=== PATIENT | female | born 1935 | race Caucasian/White ===

== ENCOUNTER 2017-05-10 10:25 | Day surgery (SDC) | payer MEDICARE ==
[2017-05-10] VITALS (9 sets, daily range): BP systolic 110–156; BP diastolic 61–72; PULSE 70–88; RESP 14–19; TEMP 97.7–98.7; O2SAT 96–100
[~2017-05-10] VITALS: Ht 162.6 cm; Wt 70.0 kg
[~2017-05-10 10:25] MED LIST: ADVI200C5 PO; ASPI1TAB69 PO; BIOT1SUB SL; CENTTAB PO; GABA100C4 PO; LACTCAP8 PO; LEVO88TA2 PO; NORC5TAB PO; OCUVTAB4 PO; OMEP40CA2 PO; UMEC1INH INH; VITA10002 SL; VITA100064 PO
[2017-05-10] MEDS ORDERED: IOHEXOL 350 MG/ML 100 ML BTL (for Cath Lab) OTHER ONE ×2 (10:26)
[2017-05-10] MEDS ORDERED: ASPIRIN 81 MG CHEW TAB PO SCH (11:30)
[2017-05-10 11:37] LABS: AUTOMATED NEUTROPHIL # 3.4 TH/MM3 (1.8-7.7); BASOPHIL % 0.5 % (0.0-2.0); EOSINOPHIL # 0.1 TH/MM3 (0-0.4); EOSINOPHIL % 1.2 % (0.0-4.0); HEMATOCRIT 39.3 % (35.0-46.0); HEMO FLAGS DIFF FINAL; LYMPH % 32.6 % (9.0-44.0); LYMPHOCYTE # 1.9 TH/MM3 (1.0-4.8); MEAN CELL VOLUME 88.1 FL (80.0-100.0); MEAN CORPUSCULAR HEMOGLOBIN 28.7 PG (27.0-34.0); MEAN CORPUSCULAR HGB CONC 32.5 % (32.0-36.0); MONO % 7.5 % (0.0-8.0); NEUT % 58.2 % (16.0-70.0); PLATELET COUNT 217 TH/MM3 (150-450); RED BLOOD COUNT 4.46 MIL/MM3 (4.00-5.30); RED CELL DISTRIBUTION WIDTH 13.7 % (11.6-17.2); WHITE BLOOD COUNT 5.8 TH/MM3 (4.0-11.0)
[2017-05-10 11:45] LABS: INTERNATIONAL NORMALIZED RATIO 0.9 RATIO; PROTHROMBIN TIME - PATIENT 10.3 SEC (9.8-11.6)
[2017-05-10 11:54] LABS: BICARBONATE 22.4 MEQ/L (21.0-32.0); POTASSIUM 4.1 MEQ/L (3.5-5.1)
[2017-05-10] MEDS ORDERED: FAMO1TAB37 PO (12:03)
[2017-05-10] MEDS ORDERED: ASPI81TA11 PO (12:03)
[2017-05-10] MEDS ORDERED: ISOS10TA PO (12:03)
[2017-05-10] MEDS ORDERED: HEPARIN-NS/PF INJ 500 ML ONE (12:16)
[2017-05-10] MEDS ORDERED: MIDAZOLAM HCL 2 MG/2 ML VIAL ONE (12:50)
[2017-05-10] MEDS ORDERED: NITROGLYCERIN 2% OINT 1 GM PACKET ONE ×2 (13:10→13:11)
[2017-05-10] MEDS ORDERED: ADENOSINE STRESS TEST INJ 90 MG/30 ML VIAL ONE (13:13)
[2017-05-10] MEDS ORDERED: TIROFIBAN INFUSION INJ 250 ML IV ONE (13:29)
[2017-05-10] MEDS ORDERED: CLOPIDOGREL 300 MG TAB ONE (13:30)
[2017-05-10] MEDS: TIROFIBAN INFUSION INJ 250 ML IV SCH (13:41)
[2017-05-10] MEDS ORDERED: SODIUM CHLORIDE 0.9% FLUSH 10 ML FLUSH IV FLUSH PRN (13:45)
[2017-05-10] MEDS ORDERED: MISC INFORMATION XX ONE (13:45)
[2017-05-10] MEDS ORDERED: CLOPIDOGREL 300 MG TAB PO ONE (13:45)
--- NOTE | 2017-05-10 13:47 | CATHPROC ---
[employer] HIS Report Study Information Study Number Admission Scheduled Start Study Start [id number] May 10 2017 10:25AM 05/10/2017 May 10 2017 11:57AM [facility] Cardiac Catheterization Admit Source Facility Department Transfer in from another acute care facility [facility] - [facility] Physician and Clinical Staff Initial Sebastian Webster Cattle Shipper Marj Pollock,CARLOTA Recorder Heike Lund,RT(R) Scrub Caren Lopez,RT(R) Procedures Performed Procedure Location (Site) Vessel Name Coronary Angiograms LCA Left Coronary Coronary Angiograms RCA Right Coronary L Heart Cath LV Gram-hand inj. LV LV Ventricle Stent LAD Mid Left Coronary Equipment Time Back Up Scan Coordinator Description Size Mfg Part Number Used/Scraped TRANSDUCER, TRUWAVE [id number] 12:07 BRUSH MCGEE * Used W/STOCKCOCK *[id number] [id number] *[id number] [id number] *[id number] *[id number] 12:07 [employer] PACK, CCL CUSTOM * Used *[id number] 12:07 [employer] PACER PEN, SKIN DUAL W/ RULER * Used *[id number] 13:25 [employer] STENT, 2.5 8 INTEGRITY 2.5 8 Used *[id number] 13:26 [employer] MEDICAL 30 CAROL INDEFLATOR Used *[id number] 13:09 [employer] MEDICAL SHEATH, FR6.5 PRELUDE 11CM FR 6.5 038ACT Used *[id number] 12:07 [employer] MEDICAL WIRE, 3MMJ .035 180CM 180CM Used *[id number] 12:07 NAMIC MANIFOLD, 4 PORT * Used *[id number] 12:07 [employer] OMNIPAQUE, 350 MG, 150ML 150ML [id number] Used [id number] 12:07 [employer] MEDICAL BLANKET,WARM AIR CCL * Used *[id number] 12:07 TERUMO MEDICAL SHEATH, FR4 TERUMO (10CM) FR 4 Used *[id number] 13:15 [employer] PRIME WIRE, VERRATA 185CM 185CM [id number] *[id number] Used STENT, 2.5 8 RESOLUTE [id number] Scrap: Staff 13:30 MEDTRONIC 2.5 8 INTEGRITY RX *[id number] Error Equipment Model, Serial, Lot Number and Expiration Data Description Model Number Serial Number Lot Number Expiration Date STENT, 2.5 8 INTEGRITY [id number] 09-16-2018 STENT, 2.5 8 RESOLUTE [id number] 11-21-2018 INTEGRITY RX History: Allergies Allergy Reaction Sulfa (Sulfonamide Antibiotics) NAUSEA morphine NAUSEA penicillin G Hives History: Risk Factors Family History of Hypertension Dyslipidemia Previous OR Previous Heart Failure Premature CAD No Yes Yes No No Prior Valve Prior PCI Prior PCIDate Prior CABG Surgery No Yes 07/31/2011 No Cerebrovascular Peripheral Artery Chronic Lung On Dialysis Diabetes Disease Disease Disease No No No Yes No History: Stress Tests Stress or Imaging Studies Performed No History: Other Current Smoker Method Quit Packs a Day Years Used Pack Years No Cigarettes 30 Years Ago 1 40 40 Labs Hgb (g/dl) Hct (%) WBC (l/cumm) Platelets (thousands) 11.60-17.00 35.00-51.00 4.00-11.00 150.00-450.00 12.8 39.3 5.8 217 Glucose (mg/dl) BUN (mg/dl) Creatinine (mg/dl) BUN:Creatinine (1:x) 74.00-106.00 7.00-18.00 0.50-1.30 10.00-20.00 90 24 0.7 34.3 Na (meq/l) K (meq/l) 136.00-145.00 3.50-5.10 141 4.1 INR (PTT:PT) 0.90-1.10 0.9 CPK-MB (ng/ML) 0.50-3.60 Not Drawn Medication Medication Total Dose (Bolus/Oral) Medication Total Dosage/Unit 1% XYLOCAINE 20 mL AGGRASTAT BOLUS 34.6 mL FENTANYL 12.5 mcg HEPARIN 4000 units NITRO OINTMENT 2 inches PLAVIX 600 mg VERSED 2 mg Medications (Bolus/Oral) Medication Time Given Dosage/Unit Administered By Reason 05/10/2017 12:55:32 1% XYLOCAINE 20 mL Sebastian Dyson PM 20 mL 1% XYLOCAINE given in lab by Sebastian Dyson in Right Groin via Subcutaneous. VERSED 05/10/2017 1:06:00 PM 1 mg Marj Pollock 1 mg VERSED given in lab by Marj Pollock, RN in Left Antecubital via Peripheral IV. Ordered by Sebastian Pina. FENTANYL 05/10/2017 1:08:00 PM 12.5 mcg Marj Pollock 12.5 mcg FENTANYL given in lab by Marj Pollock RN in Left Antecubital via Peripheral IV. Ordered by Sebastian Dyson. HEPARIN 05/10/2017 1:09:33 PM 4000 units Marj Pollock 4000 units HEPARIN given in lab by Marj Pollock RN in Right Groin via Peripheral IV. Ordered by Sebastian Cat. NITRO OINTMENT 05/10/2017 1:12:00 PM 2 inches Marj Pollock 2 inches NITRO OINTMENT given in lab by Marj Pollock RN. Ordered by Sebastian Dyson. VERSED 05/10/2017 1:14:00 PM 1 mg Marj Pollock 1 mg VERSED given in lab by Marj Pollock RN in Left Antecubital via Peripheral IV. Ordered by Sebastian Pina. AGGRASTAT BOLUS 05/10/2017 1:32:00 PM 34.6 mL Marj Pollock 34.6 mL AGGRASTAT BOLUS given in lab by Marj Pollock RN in Left Antecubital via Peripheral IV. Or dered by Sebastian Dyson. PLAVIX 05/10/2017 1:35:00 PM 600 mg Marj Pollock 600 mg PLAVIX given in lab by Marj Pollock RN via Oral. Ordered by Sebastian Dyson. Medication (Drip) Medication Time Given Dosage/Unit Concentration/Unit Diluent (ml) Solution AGGRASTAT DRIP 05/10/2017 1:33:00 PM 0.15 mcg/kg/min 12.5 mg 250 NaCl .9 0.15 mcg/kg/min AGGRASTAT DRIP given in lab by Marj Pollock RN in Left Antecubital via Peripheral IV. Pump/Drip Flow = 12.4 ml/hr using NaCl .9 with a concentration of 12.5 mg in 250 ml. Ordered by Sebastian Dyson. Initial Case Assessment Cardiovascular HR Rhythm NIBP Chest Pain 84 sr 168/100 0 Edema Present Skin color Skin None Normal Warm Dry Circulatory - Right Pulses Dorsalis Pedis Femoral 1 2 Scale (0,1,2,3,4,d) Circulatory - Left Pulses Dorsalis Pedis Femoral 2 2 Scale (0,1,2,3,4,d) Neurological State Oriented to time-place- Alert Moves all extremities person Respiration - General Respiration Rate SpO2 (%) (B/min) 15 100 Chronological Log Time Study Chronological Log 12:07:12 Patient arrived via Bed. 12:07:13 Patient Name, D.O.B, / Armband Verified By R.N. 12:07:13 Consent signed by the physician and the patient and verified by the [facility] staff. 12:07:14 Pre-op and post- op instructions given; patient acknowledges understanding of instructions. 12:07:14 Verbal Stimulation=2 Physical Stimulation=2 Airway=2 Respiration=2 TOTAL=8. (0=absent, 1=li mited, 2=present) 12:07:15 Presedation assessment performed by [facility] Operator RN. 12:07:16 Immediate Presedation assesment performed by physician. 12:07:17 Patient has been NPO for More than 6Hrs. 12:07:17 Skin Breakdown- none per pt 12:07:18 Patient Warmer Placed on the Table. 12:07:19 Zac Prominences Protected 12:07:21 A # 22 IV was noted in the Antecubital (left). Grade = 0 12:07:22 History and physical on the chart or being dictated. Vitals capture started with the following parameters, Patient=Adult, Interval=5 min, Initial Pr opqksn=636 mmHg, 12:14:27 Deflation Rate=5 mmHg, Cuff placed on Right Arm 12:15:02 HR=90 bpm, OFHF=507/100 mmhg, SpO2=99.0 %, Resp=13 B/min Assessment: Initial Case, HR=84 BPM, Rhythm=sr, QTIY=332/100 mmhg, Chest Pain=0, Edema=None, Co demi=Normal, Skin = Warm, Dry Right Pulses: Kei Ped=1, Femoral=2 12:17:03 Left Pulses: Kei Ped=2, Femoral=2 Neurological: State=Alert, Ox3, SKY Respiration: Resp=15 B/min, OoW3=372 % 12:19:02 Reference ECG taken 12:20:07 HR=84 bpm, TDPF=411/91 mmhg, FuN8=587.0 %, Resp=10 B/min 12:21:09 Bilateral groins prepped with 2% chlorhexidine, and draped after a 3 minute waiting time. 12:25:06 HR=86 bpm, WQMT=205/94 mmhg, SpO2=99.0 %, Resp=20 B/min 12:28:14 MD paged 12:30:07 HR=82 bpm, OYBC=242/85 mmhg, KjM6=134.0 %, Resp=8 B/min 12:30:08 Pressure channel 1 zeroed. 12:35:09 HR=77 bpm, FSVS=700/89 mmhg, SpO2=98.0 %, Resp=10 B/min 12:40:06 HR=77 bpm, PBNT=761/77 mmhg, SpO2=97.0 %, Resp=9 B/min 12:45:07 HR=74 bpm, JIBK=899/85 mmhg, SpO2=99.0 %, Resp=7 B/min 12:49:26 MD arrived. 12:50:51 HR=75 bpm, QPIG=188/82 mmhg, SpO2=99.0 %, Resp=17 B/min Time Out. Correct patient, correct procedure, correct physician, power injector loaded, or not loaded with contrast with 12:53:19 surgical team present. Time Out Concurred by MD and individual staff in procedure. 12:54:39 Case Start 12:55:09 HR=79 bpm, ERRK=732/100 mmhg, GwA3=265.0 %, Resp=12 B/min 12:55:32 20 mL 1% XYLOCAINE given in lab by Sebastian Dyson in Right Groin via Subcutaneous. 12:57:50 Access site was Right Femoral Artery. 13:00:00 A SHEATH, FR4 TERUMO (10CM) FR 4 was advanced into the Fem Art (right) using the Percutaneo us technique. A JR 4.0 INFINITI CATHETER FR 4 was advanced over a wire. OMNIPAQUE, 350 MG, 150ML 150ML was us ed for 13:00:06 injections. 13:00:12 HR=86 bpm, VGPV=374/101 mmhg, SpO2=99.0 %, Resp=10 B/min Recorded Pressure: LV, HR=81, Condition=Condition 1 13:00:36 (Left Ventricle) LV 165/8/15 13:00:50 The LV was manually injected with 10 cc's and visualized. OMNIPAQUE, 350 MG, 150ML 150ML us ed. Recorded Pressure: LV, Ao, HR=82, Condition=Condition 1 13:00:54 (Left Ventricle) LV 161/9/15, (Aorta) Ao 163/78/115 13:02:02 The RCA was injected and visualized at various angles. OMNIPAQUE, 350 MG, 150ML 150ML used . After removing the current catheter a JL 4.0 INFINITI CATHETER FR 4 was advanced over a WIRE, 3 MMJ .035 180CM 13:02:28 180CM. Recorded Pressure: Ao, ZH=341, Condition=Condition 1 13:03:36 (Aorta) Ao 211/117/162 13:04:03 The LCA was injected and visualized at various angles. OMNIPAQUE, 350 MG, 150ML 150ML used . 13:06:00 1 mg VERSED given in lab by Marj Pollock RN in Left Antecubital via Peripheral IV. Orde red by Sebastian Dyson. 13:06:02 ZR=993 bpm, WRHH=317/130 mmhg, SpO2=99.0 %, Resp=14 B/min 12.5 mcg FENTANYL given in lab by Marj Pollock RN in Left Antecubital via Peripheral IV. Or dered by Kiel, 13:08:00 Sebastian. 13:09:33 4000 units HEPARIN given in lab by Marj Pollock, CARLOTA in Right Groin via Peripheral IV. Or dered by Sebastian Dyson. 13:10:18 UH=583 bpm, ICNE=282/113 mmhg, SpO2=99.0 %, Resp=11 B/min 13:12:00 2 inches NITRO OINTMENT given in lab by Marj Pollock, CARLOTA. Ordered by Sebastian Dyson. 13:14:00 1 mg VERSED given in lab by Marj Pollock RN in Left Antecubital via Peripheral IV. Orde red by Sebastian Dyson. 13:14:44 Activated Clotting Time Drawn A SHEATH, FR6.5 PRELUDE 11CM FR 6.5 was exchanged in the Fem Art (right). This was necessary in order to 13:15:00 accomodate a larger catheter. 13:15:17 HR=91 bpm, GTHD=513/89 mmhg, SpO2=97.0 %, Resp=9 B/min A XB 3.5 GUIDE CATHETER FR 6 was advanced over a wire. OMNIPAQUE, 350 MG, 150ML 150ML was used for 13:15:23 injections. 13:17:24 Flow Wire was was placed in the LAD Mid. The IFR measures 0.85 Percent. 13:19:55 Interventional wire has crossed the lesion 13:20:10 HR=89 bpm, VKIC=546/93 mmhg, SpO2=95.0 %, Resp=9 B/min 13:21:33 ACT (Normal Range 90-180) = 290 An STENT, 2.5 8 INTEGRITY 2.5 8 Bare Metal Stent was inserted through a XB 3.5 GUIDE CATHETER F R 6 over a 13:25:00 PRIME WIRE, VERRATA 185CM 185CM. 13:25:11 HR=91 bpm, LXGN=193/91 mmhg, SpO2=97.0 %, Resp=8 B/min A STENT, 2.5 8 INTEGRITY 2.5 8 was deployed using a 30 CAROL INDEFLATOR at 10 atmospheres for 15 seconds in the 13:25:19 LAD Mid. 13:26:11 Delivery device removed 13:26:16 Wire removed 13:26:24 Catheter was removed 13:29:00 Case End 13:30:14 HR=95 bpm, EADE=664/101 mmhg, SpO2=95.0 %, Resp=15 B/min 13:31:40 In the Fem Art (right) the SHEATH, FR6.5 PRELUDE 11CM FR 6.[address] by Sebastian Bush. 34.6 mL AGGRASTAT BOLUS given in lab by Marj Pollock, RN in Left Antecubital via Peripheral IV. Ordered by 13:32:00 Sebastian Dyson. 0.15 mcg/kg/min AGGRASTAT DRIP given in lab by Marj Pollock, CARLOTA in Left Antecubital via Ana pheral IV. Pump/Drip 13:33:00 Flow = 12.4 ml/hr using NaCl .9 with a concentration of 12.5 mg in 250 ml. Ordered by Sebastian Dyson. 13:34:28 Sterile dressing applied to site ::29 No case complications noted. :: Cine recording checked. 13:34:34 Holding Area notified of successful intervention. 13:35:00 600 mg PLAVIX given in lab by Marj Pollock RN via Oral. Ordered by Sebastian Dyson. 13:35:15 HR=75 bpm, IWGP=456/101 mmhg, Resp=11 B/min 13:39:58 Vitals capture stopped. 13:40:09 Implantable Device card placed in patient's chart. 13:40:11 Bedside Report will be given. 13:40:14 A Left Heart Cath was performed. 13:42:00 Patient moved to stretcher 13:47:32 Recorded Pressure: HR=?, Condition=Condition 1 End Study - Contrast Media Used In Study Contrast Total Opened (mL) Total Used (mL) Total Wasted (mL) Omnipaque 80 80 0 End Study - Maximum Contrast Load Max Contrast Load (mL) 493.5 End Study - Radiation Exposure Fluoro Time (minutes) 3.3 End Study - Patient Disposition Complications Transferred To Interventional Outcome No Telemetry Bed successful
--- NOTE | 2017-05-10 14:33 | MA ---
cc: RUKHSANA TAYLOR M.D. DATE: 05/10/2017 PROCEDURE PERFORMED Left heart catheterization, left ventriculography, coronary angiography, FFR of the mid-LAD and PCI with bare metal stent of the mid-LAD. INDICATION Unstable angina with moderate chest pressure at 3 minutes of the Kike protocol, small fixed defect and reversible defect in the apex, EF 60%, [place] Cardiovascular Society Class 2-3 angina, coronary artery disease, intolerance to statins. PROCEDURE The patient was brought to the cardiac catheterization lab, prepped and draped in the usual sterile fashion. 10 ccs of 1% lidocaine was used to locally anesthetize the right common femoral artery. A 4-[place] sheath was placed in the right common femoral artery. A 4-[place] JR-4, JL-4 catheters were used to perform left and right coronary angiography, left ventriculography. FINDINGS LV pressures 160/8-15, ejection fraction 60%. The right coronary artery is dominant. There are minimal luminal irregularities up to 5-10% angiographically in the mid segment. Left main coronary artery has a distal 20% stenosis. The left circumflex vessel has a long ostial proximal 40-50% stenosis, it is very tortuous in the proximal segment, has a 90 degree bend off the left main and then after about 10 mm a second 90 degree bend anteriorly. The third obtuse marginal vessel is a medium to large size vessel with smooth proximal 20% stenosis. The remainder of the AV groove left circumflex vessel is a small vessel probably 1 mm in diameter, it does have a fairly high-grade lesion just after the obtuse marginal vessel with estimated 60-70%. There is a ramus intermedius vessel which is a medium to large size vessel which has a mild diffuse disease in the proximal segment up to 20% angiographically. In the mid to distal segment just proximal to a bifurcation there is a 30-40% stenosis. There also appears to be either a second ramus intermedius vessel/high obtuse marginal vessel that is small to medium in size with no significant disease angiographically. The LAD is non-transapical. The stent in the prox mid segment has moderate diffuse in-stent stenosis up to perhaps 50% angiographically. At the distal stent margin and just probably a millimeter or 2 millimeters distal to the stent margin there is a focal 50% stenosis. There is a long 60-70% stenosis in the soz-kx-nkexii segment just beginning at the bifurcation with the second diagonal artery. The first diagonal artery is a small vessel probably 0.5 mm in diameter, mild diffuse disease in the ostial proximal segment up to 20% angiographically. Second diagonal artery is small to medium size vessel, no significant disease angiographically. Third diagonal artery is small to medium-sized vessel, no significant disease angiographically. 6-[place] Islander sheath was exchanged for the 4-[place]er sheath. 60 units per kilo of heparin was given. ACT was 292. 6-[place] Islander XB 3.5 guide, a .014 volcano pressure wire was placed into the proximal LAD. The introducer was removed, the ___ was firmly fastened. The guide catheter was thoroughly flushed with 20 ccs of normal saline. Pressure waveforms were normalized. The pressure wire was then advanced to the distal LAD and the IFR was .85, this was recorded. Based on this finding decision was made to proceed with PCI of the wrf-gb-zvngcn LAD lesion. I directly place a 2-5, 8 integrity stent, one inflation 10 atmospheres for 20 seconds. This did reproduce the patient's chest pain, although it was more severe then what she had on the treadmill. Symptoms were relieved after balloon deflation. Stenosis went from 70% to 0% with EDIE-III flow. There was no compromise of the ostial diagonal vessel. I did stent back to the ostium of that diagonal vessel. CONCLUSION 1. New onset cardiac symptom of chest pain with fairly minimal exertion 3 minutes of the standard Kike protocol, small fixed defect, reversible defect in the apical wall, nuclear stress test culprit, 70% stenosis in the kap-ho-wrvkgq LAD with IFR of .85 as detailed above. 2. Otherwise mild to moderate three-vessel coronary artery disease with moderate diffuse in-stent stenosis of the proximal mid LAD up to 50% angiographically with a focal 50% stenosis approximately a millimeter beyond the distal stent margin as detailed above. 3. Normal LV systolic function, ejection fraction 60%. 4. IFR of the noq-lj-xuicnj LAD of .85. 5. Successful direct PCI with bare metal stent of the mak-zr-hmcrmd LAD from 70% to 0% with EDIE-III flow. 6. Recommend Plavix 600 mg p.o. load then 75 mg a day for 12-15 months, aspirin 162 mg daily, Lilia john per protocol. The patient is intolerant of statins. MD JOE Justice/CHIKA /1:34 PM /1:53 PM
[2017-05-10] MEDS: ACETAMINOPHEN 325 MG TAB PO PRN ×2 (15:29→22:24)
[2017-05-10] MEDS: SODIUM CHLORIDE 0.9% FLUSH 10 ML FLUSH IV FLUSH SCH (21:00)
[2017-05-11] VITALS (11 sets, daily range): BP systolic 154–175; BP diastolic 72–81; PULSE 68–90; RESP 16–19; TEMP 97.7–97.8; O2SAT 96–97
[2017-05-11] MEDS: TIROFIBAN INFUSION INJ 250 ML IV SCH (03:49)
[2017-05-11 04:31] LABS: AUTOMATED NEUTROPHIL # 4.8 TH/MM3 (1.8-7.7); BASOPHIL % 0.4 % (0.0-2.0); EOSINOPHIL # 0.1 TH/MM3 (0-0.4); EOSINOPHIL % 1.6 % (0.0-4.0); HEMATOCRIT 35.6 % (35.0-46.0); HEMO FLAGS DIFF FINAL; LYMPH % 17.9 % (9.0-44.0); LYMPHOCYTE # 1.2 TH/MM3 (1.0-4.8); MEAN CELL VOLUME 87.3 FL (80.0-100.0); MEAN CORPUSCULAR HEMOGLOBIN 28.9 PG (27.0-34.0); MEAN CORPUSCULAR HGB CONC 33.1 % (32.0-36.0); MONO % 6.9 % (0.0-8.0); NEUT % 73.2 % (16.0-70.0); PLATELET COUNT 199 TH/MM3 (150-450); RED BLOOD COUNT 4.08 MIL/MM3 (4.00-5.30); RED CELL DISTRIBUTION WIDTH 13.6 % (11.6-17.2); WHITE BLOOD COUNT 6.6 TH/MM3 (4.0-11.0)
[2017-05-11 04:50] LABS: BICARBONATE 23.3 MEQ/L (21.0-32.0); POTASSIUM 3.7 MEQ/L (3.5-5.1)
[2017-05-11] MEDS: ACETAMINOPHEN 325 MG TAB PO PRN (05:47)
[2017-05-11] MEDS: SODIUM CHLORIDE 0.9% FLUSH 10 ML FLUSH IV FLUSH SCH (08:15)
[2017-05-11] MEDS ORDERED: CLOPIDOGREL 75 MG TAB PO SCH (09:00)
[2017-05-11] MEDS ORDERED: ASPIRIN 81 MG CHEW TAB PO SCH (09:00)
[2017-05-11] MEDS ORDERED: PLAV75TA29 PO (09:04)
--- NOTE | 2017-05-11 14:02 | EKG ---
Date Performed: 05/11/2017 Time Performed: 05:15:24 PTAGE: 81 years EKG: Sinus rhythm Extensive ST-T changes may be due to myocardial ischemia Abnormal ECG Compared to PREVIOUS TRACING , the nonpsecific ST-T wave changes are new but nonspecific. Clinical co rrelation will be important. PREVIOUS TRACIN03/16/2015 11.43 DOCTOR: Sunni Hardy Interpretating Date/Time 05/11/2017 14:02:02
== END 2017-05-11 10:45 | disposition home or self-care (01) ==
LOC: HCAT 10:25 → HDIC 10:26 → HCPC 16:06 → HCAT 05-11 10:45
PROVIDERS: ATTEND Internal Medicine Interventional Cardiology
DX: I25.110 Atherosclerotic heart disease of native coronary artery with unstable angina pectoris (principal); I10 Essential (primary) hypertension; E78.5 Hyperlipidemia, unspecified; J44.9 Chronic obstructive pulmonary disease, unspecified
CPT/HCPCS: 80048; 82550; 85002; 85025; 85347; 85610; 92920; 93005; 93458; C1769; C1876; C1887; C1893; J0153; J1644; J2250; J3010; J3246; Q9967

== ENCOUNTER → 2017-11-29 | Day surgery (SDC) | payer MEDICARE ==
[~2017-11-29] MED LIST changes: -ADVI200C5 PO; -ASPI1TAB69 PO; +ASPI81TA23 PO; -BIOT1SUB SL; +BIOTCAP PO; +CENTCHW3 PO; -CENTTAB PO; +CHOL5000 PO; +GLUC500T4 PO; -LACTCAP8 PO; +LIDOCAINE HCL 1% 30 ML VIAL OTHER ONE; -NORC5TAB PO; -OMEP40CA2 PO; +PLAV75TA29 PO; +PRIL20TA2 PO; +PROPOFOL 200 MG/20 ML AMP IV ONE; +ROSU1TAB6 PO; +SODIUM CHLORIDE 0.9% 10 ML VIAL ONE; -VITA10002 SL; -VITA100064 PO; +methylPREDNISolone ACETATE 80 MG/ML VIAL ONE
--- NOTE | 2017-11-29 10:58 | M6 ---
cc: Omaira Terrazas MD DATE: 11/29/2017 DATE OF : 1935. PROCEDURE PERFORMED: Fluoroscopically-guided right S1 epidural steroid injection. History and physical was completed and signed. Consent was signed. Procedure site was marked. Medications were listed and reconciled. Pain score was recorded. Allergies were noted. Time out was taken. Fluoroscopy time was recorded where applicable. Sedation was administered or directed by Dr. Terrazas. The patient was given oxygen. The patient was monitored by a registered nurse. Total procedure time was greater than 15 minutes. PROCEDURE NOTE: IV was started. Blood pressure cuff, pulse oximeter and EKG were applied. The patient was placed in the prone position on a Neeraj table, sedated with small amounts of propofol titrated to effect. Vital signs were monitored and remained stable throughout the procedure. The lumbar area was prepped with alcohol and 10% Betadine solution and draped with sterile drapes. Fluoroscopy was used to visualize the S1 neural foramen on the right side. A 3-1/2-inch, 22-gauge Chiba needle was advanced under fluoroscopic guidance through the neural foramen. There was negative aspiration for blood or any other type of fluid and the patient was given 10 mL of 0.5% Xylocaine and 80 mg of Depo-Medrol. Following the procedure, the patient was taken to the recovery room with stable vital signs and neurologically intact. She will be evaluated immediately and with followup to determine if she has a subjective decrease in her usual pain and a corresponding objective increase in her functional capabilities. MD ALONZO Gonzalez/LAZ , 10:46 AM , 10:57 AM
--- NOTE | 2017-11-29 11:17 | M5 ---
cc: Omaira Terrazas MD, Deanna K MD DATE OF CONSULT: 11/29/2017 DATE OF : 1935 Vital signs were taken including a pain score. Medications were checked and reconciled. Past medical history and past surgical history were updated. Allergies were updated. Any new imaging studies were reviewed. Referring physician records were reviewed. BMI was recorded. Smokers were counseled. Fall risk was discussed. SUBJECTIVE: On 11/15/2017, we performed fluoroscopically-guided injection of Ms. Berry's right lumbar facet joints. She states that on 11/16/2017, the day after the procedure, she had 80-90% relief of her usual pain. She went shopping, she walked extensively and she states that relief lasted for 12 days, then the pain returned. PHYSICAL EXAMINATION: On exam today, the patient is complaining of right-sided low back pain with some pain extending into the buttocks and upper aspect of her right lower extremity. IMPRESSION: Right lumbar facet joint arthropathy with excellent relief of her pain with right lumbar facet joint injections. RECOMMENDATION: Radiofrequency ablation of her right lumbar facet joints in hopes of obtaining more prolonged relief. The patient is status post lumbar laminectomy at multiple levels without fusion hardware and under fluoroscopic examination the target areas for the radiofrequency ablation will be difficult to see. The procedure was explained to the patient and she does wish to proceed with radiofrequency ablation in hopes of obtaining more prolonged relief. MD ALONZO Gonzalez/LAZ , 10:50 AM , 11:16 AM
== END | disposition home or self-care (01) ==
LOC: PHSDC 09:00
PROVIDERS: ATTEND Pain Medicine Interventional Pain Medicine
DX: M54.5 Low back pain (principal)
CPT/HCPCS: 62323; 99152; J1040